=== PATIENT | male | born 1980 | race Asian ===

== ENCOUNTER 2021-04-27 03:47 | Emergency (ER) | payer OTHER ==
[~2021-04-27] VITALS: Ht 175.3 cm; Wt 83.9 kg
[2021-04-27 03:48] VITALS: BP 139/92
[2021-04-27] MEDS ORDERED: IBUPROFEN 800 MG TAB PO ONE (06:45)
== END 2021-04-27 06:53 | disposition home or self-care (01) ==
LOC: ER 03:47
DX: S39.012A Strain of muscle, fascia and tendon of lower back, initial encounter (principal); S29.012A Strain of muscle and tendon of back wall of thorax, initial encounter; S80.12XA Contusion of left lower leg, initial encounter; S80.11XA Contusion of right lower leg, initial encounter; V43.52XA Car driver injured in collision with other type car in traffic accident, initial encounter; Y93.89 Activity, other specified; Y92.410 Unspecified street and highway as the place of occurrence of the external cause; Y99.8 Other external cause status
CPT/HCPCS: 72100; 73502; 73562; 73590